=== PATIENT | male | born 1940 | race Caucasian/White ===

== ENCOUNTER 2016-10-11 12:28 | Outpatient (CLI) | payer MEDICARE, OTHER | END 2016-10-11 12:29 | disposition home or self-care (01) | LOC: NS 12:28 | PROVIDERS: ATTEND Family Medicine | DX: Z71.3 Dietary counseling and surveillance (principal); E11.8 Type 2 diabetes mellitus with unspecified complications; E78.2 Mixed hyperlipidemia; E85.9 Amyloidosis, unspecified; Z68.41 Body mass index [BMI] 40.0-44.9, adult | CPT/HCPCS: 97802 ==

== ENCOUNTER 2017-08-18 18:10 | Outpatient (CLI) | payer MEDICARE, OTHER | END 2017-08-18 18:11 | disposition short-term general hospital (02) | LOC: EMS 18:10 | PROVIDERS: ATTEND Surgery | DX: R55 Syncope and collapse (principal); R09.89 Other specified symptoms and signs involving the circulatory and respiratory systems; R53.1 Weakness; R61 Generalized hyperhidrosis | CPT/HCPCS: A0425; A0427 ==

== ENCOUNTER 2017-10-12 08:00 | Outpatient (CLI) | payer MEDICARE, OTHER | END 2017-10-12 08:01 | disposition home or self-care (01) | LOC: LAB.R 08:00 | PROVIDERS: ATTEND Podiatrist | DX: E11.622 Type 2 diabetes mellitus with other skin ulcer (principal) | CPT/HCPCS: 87070; 87205 ==

== ENCOUNTER 2017-10-12 10:19 | Outpatient (CLI) | payer MEDICARE, OTHER ==
--- NOTE | 2017-10-12 14:27 | XRAY Report ---
LEFT FOOT, THREE VIEWS: 10/12/2017 HISTORY: Diabetic with change in left foot shape. COMPARISON: No comparisons. FINDINGS: There is loss of the normal plantar arch of the foot. Degenerative change at the forefoot-midfoot and midfoot-hindfoot junction with sclerosis and spurring. Distortion/deformity of the normal talocalcaneal articulation/alignment. Prominent plantar calcaneal spur. PIP joints of the toes held in flexion. Scattered toe IP joing degenerative changes and first metatarsophalangeal degenerative change. Soft tissue swelling present over the dorsum of the foot. IMPRESSION: LOSS OF THE NORMAL PLANTAR ARCH OF THE FOOT WITH SCATTERED DEGENERATIVE CHANGES AND DEFORMITY, MOST MARKED OF THE TALOCALCANEAL ARTICULATION. FINDINGS MAY BE RELATED TO DEVELOPING CHARCOT JOINT. IMAGING OF THE LEFT ANKLE MAY BE USEFUL. TD: 10/12/2017 13:58 SHARAN
== END 2017-10-12 10:20 | disposition home or self-care (01) ==
LOC: DI 10:19
PROVIDERS: ATTEND Podiatrist
DX: E11.622 Type 2 diabetes mellitus with other skin ulcer (principal)
CPT/HCPCS: 87070; 87205

== ENCOUNTER 2017-10-14 14:20 | Outpatient (CLI) | payer MEDICARE, OTHER ==
--- NOTE | 2017-10-14 16:59 | XRAY Report ---
EXAM: LEFT ANKLE RADIOGRAPHY EXAM DATE: 10/14/2017 02:56 PM. CLINICAL HISTORY: Chronic foot pain, clinical concern for Charcot joint disease. COMPARISON: None. TECHNIQUE: 3 views. FINDINGS: Bones: No fractures or bony destructive lesions. Joints: There is flat midfoot arch with multi mid foot joints' mild to moderate degenerative process without abnormal low bone density or destructive appearance. There is moderate degenerative process w ith diminished joint space, subchondral sclerotic reaction in the subtalar joint. Otherwise, no dislo cation subluxations. Mild degenerative process in the mortise is also noted. Soft Tissues: Mild soft tissue swelling. There is a calcified nodule posterior to the cuboid, 4 x 8 m m, likely nonspecific soft tissue calcification. IMPRESSION: Mild to moderate degenerative process in the mid and posterior foot, loss of the midfoot arch, but no abnormal hypodensity or destructive appearance, atypical appearance for Charcot joint di sease. [facility] Referring Provider Line: [phone] SITE ID: [id number]
== END 2017-10-14 14:21 | disposition home or self-care (01) ==
LOC: DI 14:20
PROVIDERS: ATTEND Podiatrist
DX: M19.072 Primary osteoarthritis, left ankle and foot (principal)

== ENCOUNTER 2022-04-15 08:00 | Outpatient (CLI) | payer MEDICARE, OTHER | END 2022-04-15 23:59 | disposition home or self-care (01) | LOC: LAB.R 08:00 | PROVIDERS: ATTEND Podiatrist | DX: E11.622 Type 2 diabetes mellitus with other skin ulcer (principal) | CPT/HCPCS: 87070; 87077; 87181; 87205 ==

== ENCOUNTER 2023-06-23 14:58 | Outpatient (CLI) | payer MEDICARE, OTHER ==
--- NOTE | 2023-06-23 15:33 | XRAY Report ---
PROCEDURE: Foot 3+V RT (Weight Bearing) INDICATIONS: RIGHT FOOT EDEMA TECHNIQUE: 3 views of the right foot, weightbearing COMPARISON: Right foot radiograph on April 22, 2022 FINDINGS: Bones: No acute fracture or dislocation. Mild first MTP and diffuse IP joint space narrowing and juxt a-articular osteophytosis. Claw toe deformities of the second through fifth toes. Mild midfoot dorsal osteoarthritis. Soft tissue: Mild soft tissue swelling in the forefoot. Small plantar calcaneal and these osteophyte. Vascular calcifications. IMPRESSION: 1.No acute osseous abnormality. If there is high clinical suspicion for a radiographically occult fra cture, consider repeat imaging in 10-14 days versus cross sectional imaging. 2.Mild midfoot and forefoot osteoarthritis. Reviewed by: Dalila Perez MD on 06/23/2023 3:31 PM PST Approved by: Dalila Perez MD on 06/23/2023 3:31 PM PST Station ID: [id number]
== END 2023-06-23 14:59 | disposition home or self-care (01) ==
LOC: DI 14:58
PROVIDERS: ATTEND Podiatrist
DX: R60.0 Localized edema (principal); E11.40 Type 2 diabetes mellitus with diabetic neuropathy, unspecified; M19.071 Primary osteoarthritis, right ankle and foot